=== PATIENT | female | born 1955 | race Caucasian/White ===

== ENCOUNTER → 2017-03-29 | Outpatient (CLI) | payer OTHER ==
[~2017-03-29] MED LIST: ADVIL200 MG PO; CALCIUM 600 +1 EAC6 PO; LIPITOR10 MG PO; TURMERIC500 MG PO
== END ==
LOC: GRAD 09:30
DX: M54.31 Sciatica, right side (principal); M47.896 Other spondylosis, lumbar region

== ENCOUNTER → 2017-04-28 | Outpatient (CLI) | payer OTHER | END | disposition disaster alternative care site (69) | LOC: GRAD 11:52 | DX: M54.16 Radiculopathy, lumbar region (principal); M54.9 Dorsalgia, unspecified; M48.06 Spinal stenosis, lumbar region ==